=== PATIENT | female | born 1975 | race African-American/Black ===

== ENCOUNTER 2021-05-12 10:56 | Day surgery (SDC) | payer OTHER ==
[~2021-05-12 10:56] MED LIST: SYNTHROID50 MCG PO
== END 2021-05-12 20:50 | disposition home or self-care (01) ==
LOC: CIR.AMB 10:56
PROVIDERS: ATTEND Obstetrics & Gynecology
DX: Z30.432 Encounter for removal of intrauterine contraceptive device (principal); Z20.822 Contact with and (suspected) exposure to COVID-19